=== PATIENT | male | born 1990 | race Caucasian/White ===

== ENCOUNTER 2018-01-04 09:32 | Emergency (ER) | payer BC, SELFPAY ==
--- NOTE | 2018-01-04 11:04 | RAD REPORT ---
EXAM DESCRIPTION: US - Scrotum Testicles - 01/04/2018 10:43 am CLINICAL HISTORY: Left-sided groin pain. COMPARISON: None. FINDINGS: The right testicle 5.2 x 3.6 x 2.5 cm. No intratesticular masses or evidence of testicular torsion. The left testicle 4.7 x 3.4 x 2.1 cm. No intratesticular masses or evidence of testicular torsion. Both epididymides are normal in size and appearance. Moderate fat containing left inguinal hernia suspected. IMPRESSION: Suspected left inguinal hernia. Correlation with physical exam findings is suggested.
[2018-01-04 11:15] LABS: Absolute Lymphocytes (CBC) 2.5 K/uL (0.7-4.9); Absolute Monocytes 0.6 K/uL (0.1-1.3); Absolute Neutrophil 3.2 K/uL (1.8-8.0); Basophils % 0.4 % (0-1.3); Eosinophils % 2.1 % (0-4.4); Hematocrit 40.1 % (39.6-49.0); Lymphocytes % 38.4 % (15.3-44.8); MCH 30.7 pg (27.0-35.0); MCV 87.5 fL (80-100); MPV 7.5 fL (7.6-11.3); RBC Red Blood Cell Count 4.59 M/uL (4.33-5.43)
[2018-01-04 11:26] LABS: Bicarbonate 27 mEq/L (21-31); Glucose Level 101 mg/dL (65-120); Potassium 3.8 mEq/L (3.6-5.0); Sodium Level 137 mEq/L (135-145)
[2018-01-04 11:29] LABS: ALT/SGPT 39 IU/L (10-60); AST/SGOT 26 IU/L (10-42); Albumin 4.4 g/dL (3.2-5.5); Alkaline Phosphatase 64 IU/L (42-121); BUN Blood Urea Nitrogen 12 mg/dL (6-20); Bilirubin Total 0.5 mg/dL (0.3-1.2); Protein, Total 7.2 g/dL (6.0-8.3)
[2018-01-04 11:47] LABS: Urine Blood NEGATIVE (NEG); Urine Glucose NEGATIVE (NEG); Urine Protein NEGATIVE (NEG); Urine Specific Gravity 1.025 (1.005-1.030); Urine pH 5.5 (5.0-7.0)
--- NOTE | 2018-01-04 11:53 | EDPHYS ---
Physician Documentation [facility] Name: Jatin Rodríguez Age: 27 yrs Sex: Male : 1990 Arrival Date: 01/04/2018 Time: 09:35 Bed 16 Private MD: ED Physician Bandar Ricks HPI: 01/04 11:40 This 27 yrs old Male presents to ER via Ambulatory with complaints of sandro Testicular Swelling. 11:40 The patient presents with tenderness, that is mild, that is moderate, of the left sandro testicle. Onset: The symptoms/episode began/occurred 3 day(s) ago. Modifying factors: The symptoms are alleviated by remaining still, the symptoms are aggravated by movement, pressure. Associated signs and symptoms: The patient has no apparent associated signs or symptoms. Severity of symptoms: At their worst the symptoms were mild, in the emergency department the symptoms are unchanged. The patient has experienced similar episodes in the past, a few times. Historical: - Allergies: 10:06 No Known Allergies; jl7 - Home Meds: 10:06 None [Active]; jl7 - PMHx: 10:06 None; jl7 - PSHx: 10:06 None; jl7 - Immunization history:: Adult Immunizations unknown. - Social history:: Smoking status: Patient/guardian denies using tobacco. ROS: 11:45 Constitutional: Negative for fever, chills, and weight loss, Eyes: Negative for injury, sandro pain, redness, and discharge, ENT: Negative for injury, pain, and discharge, Neck: Negative for injury, pain, and swelling, Cardiovascular: Negative for chest pain, palpitations, and edema, Respiratory: Negative for shortness of breath, cough, wheezing, and pleuritic chest pain, Abdomen/GI: Negative for abdominal pain, nausea, vomiting, diarrhea, and constipation, Back: Negative for injury and pain, MS/Extremity: Negative for injury and deformity, Skin: Negative for injury, rash, and discoloration, Neuro: Negative for headache, weakness, numbness, tingling, and seizure, Psych: Negative for depression, anxiety, suicide ideation, homicidal ideation, and hallucinations, Allergy/Immunology: Negative for hives, rash, and allergies, Endocrine: Negative for neck swelling, polydipsia, polyuria, polyphagia, and marked weight changes, Hematologic/Lymphatic: Negative for swollen nodes, abnormal bleeding, and unusual bruising. 11:45 : Positive for of the left testicle. Exam: 11:45 Constitutional: This is a well developed, well nourished patient who is awake, alert, sandro and in no acute distress. Head/Face: Normocephalic, atraumatic. Eyes: Pupils equal round and reactive to light, extra-ocular motions intact. Lids and lashes normal. Conjunctiva and sclera are non-icteric and not injected. Cornea within normal limits. Periorbital areas with no swelling, redness, or edema. ENT: Nares patent. No nasal discharge, no septal abnormalities noted. Tympanic membranes are normal and external auditory canals are clear. Oropharynx with no redness, swelling, or masses, exudates, or evidence of obstruction, uvula midline. Mucous membranes moist. Neck: Trachea midline, no thyromegaly or masses palpated, and no cervical lymphadenopathy. Supple, full range of motion without nuchal rigidity, or vertebral point tenderness. No Meningismus. Chest/axilla: Normal chest wall appearance and motion. Nontender with no deformity. No lesions are appreciated. Cardiovascular: Regular rate and rhythm with a normal S1 and S2. No gallops, murmurs, or rubs. Normal PMI, no JVD. No pulse deficits. Respiratory: Lungs have equal breath sounds bilaterally, clear to auscultation and percussion. No rales, rhonchi or wheezes noted. No increased work of breathing, no retractions or nasal flaring. Abdomen/GI: Soft, non-tender, with normal bowel sounds. No distension or tympany. No guarding or rebound. No evidence of tenderness throughout. Back: No spinal tenderness. No costovertebral tenderness. Full range of motion. Skin: Warm, dry with normal turgor. Normal color with no rashes, no lesions, and no evidence of cellulitis. MS/ Extremity: Pulses equal, no cyanosis. Neurovascular intact. Full, normal range of motion. Neuro: Awake and alert, GCS 15, oriented to person, place, time, and situation. Cranial nerves II-XII grossly intact. Motor strength 5/5 in all extremities. Sensory grossly intact. Cerebellar exam normal. Normal gait. Psych: Awake, alert, with orientation to person, place and time. Behavior, mood, and affect are within normal limits. 11:45 : CVA tenderness, is absent, Male external genitalia: Circumcision noted. tenderness, of the left testicle is noted. 11:45 Musculoskeletal/extremity: Extremities: all appear grossly normal, with no appreciated pain with palpation. Vital Signs: 10:06 BP 114 / 68; Pulse 80; Resp 16 S; Temp 98.3(O); Pulse Ox 98% on R/A; Weight 102.06 kg 7 (R); Height 5 ft. 10 in. (177.80 cm) (R); Pain 6/10; 11:00 BP 114 / 75; Pulse 91; Resp 16 S; Pulse Ox 98% on R/A; jl7 12:00 BP 113 / 74; Pulse 90; Resp 16 S; Pulse Ox 100% on R/A; 7 10:06 Body Mass Index 32.28 (102.06 kg, 177.80 cm) [facility] MDM: 09:58 Patient medically screened. [facility] 01/04 10:02 Order name: CBC with Diff; Complete Time: 11:40 [facility] 01/04 10:02 Order name: Comprehensive Metabolic Panel; Complete Time: 11:40 [facility] 01/04 10:02 Order name: US Scrotum Testicles; Complete Time: 11:40 [facility] 01/04 10:02 Order name: Urine Culture [facility] 01/04 10:44 Order name: Urine Dipstick--Ancillary (enter results) [facility] 01/04 10:02 Order name: Urine Dipstick-Ancillary (obtain specimen); Complete Time: 11:18 [facility] 01/04 10:02 Order name: IV Saline Lock; Complete Time: 11:17 [facility] Administered Medications: 12:00 Drug: Zithromax 1 grams Route: PO; [facility] 12:05 Follow up: Response: No adverse reaction [facility] 12:01 Drug: Rocephin - (cefTRIAXone) 1 grams Route: IVPB; Infused Over: 30 mins; Site: right jl7 antecubital; 12:03 Follow up: Response: No adverse reaction; IV Status: Completed infusion [facility] 12:03 Drug: TORadol 30 mg Route: IVP; Site: right antecubital; [facility] 12:05 Follow up: Response: No adverse reaction; Pain is decreased [facility] Disposition: 01/04/18 11:53 Discharged to Home. Impression: Epididymitis. - Condition is Stable. - Discharge Instructions: Epididymitis. - Prescriptions for Ibuprofen 600 mg Oral Tablet - take 1 tablet by ORAL route every 8 hours As needed take with food; 21 tablet. Tylenol- Codeine #3 300-30 mg Oral Tablet - take 2 tablets by ORAL route every 6 hours As needed; 24 tablet. Doxycycline Hyclate 100 mg Oral Tablet - take 1 tablet by ORAL route every 12 hours; 14 tablet. - Medication Reconciliation Form, Thank You Letter, Antibiotic Education, Prescription Opioid Use form. - Follow up: Private Physician; When: 2 - 3 days; Reason: Recheck today's complaints, Continuance of care, Re-evaluation by your physician. Follow up: Coreen Dodge MD; When: 2 - 3 days; Reason: Recheck today's complaints, Re-evaluation by your physician. Follow up: Flynn Webb MD; When: 2 - 3 days; Reason: Recheck today's complaints, Re-evaluation by your physician. - Problem is new. - Symptoms have improved. Signatures: Dispatcher [employer] EDBandar Valencia MD MD cha Leal, Jahala, RN RN jl7
--- NOTE | 2018-01-04 11:53 | ER ---
Nurse's Notes [facility] Name: Jatin Rodríguez Age: 27 yrs Sex: Male : 1990 Arrival Date: 01/04/2018 Time: 09:35 Bed 16 Private MD: Diagnosis: Epididymitis Presentation: 01/04 10:04 Presenting complaint: Patient states: "The veins in my testicles are swollen." Denies jl7 trauma. Transition of care: patient was not received from another setting of care. Onset of symptoms was January 01, 2018. Initial Sepsis Screen: Does the patient meet any 2 criteria? No. Patient's initial sepsis screen is negative. Does the patient have a suspected source of infection? No. Patient's initial sepsis screen is negative. Care prior to arrival: None. 10:04 Method Of Arrival: Ambulatory [facility] 10:04 Acuity: BARBARA 3 jl7 Historical: - Allergies: 10:06 No Known Allergies; jl7 - Home Meds: 10:06 None [Active]; jl7 - PMHx: 10:06 None; jl7 - PSHx: 10:06 None; jl7 - Immunization history:: Adult Immunizations unknown. - Social history:: Smoking status: Patient/guardian denies using tobacco. Screenin:10 Abuse screen: Denies threats or abuse. Denies injuries from another. Nutritional jl7 screening: No deficits noted. Tuberculosis screening: No symptoms or risk factors identified. Fall Risk IV access (20 points). Total Abarca Fall Scale indicates No Risk (0-24 pts). Assessment: 10:10 General: Appears in no apparent distress. uncomfortable. Pain: Complains of pain in jl7 left testicle Pain does not radiate. Pain currently is 7 out of 10 on a pain scale. Pain began 2-3 days ago. Neuro: Level of Consciousness is awake, alert, obeys commands. Cardiovascular: Patient's skin is warm and dry. Respiratory: Airway is patent Respiratory effort is even, unlabored, Respiratory pattern is regular, symmetrical. GI: No signs and/or symptoms were reported involving the gastrointestinal system. : Genitalia appear normal Reports "Testicle vein swelling.". EENT: No signs and/or symptoms were reported regarding the EENT system. Derm: Skin is pink, warm \\T\\ dry. Musculoskeletal: No signs and/or symptoms reported regarding the musculoskeletal system. 11:00 Reassessment: Patient and/or family updated on plan of care and expected duration. Pain jl7 level reassessed. Patient is alert, oriented x 3, equal unlabored respirations, skin warm/dry/pink. 12:00 Reassessment: Dr. Ricks at bedside discussing POC. jl7 Vital Signs: 10:06 BP 114 / 68; Pulse 80; Resp 16 S; Temp 98.3(O); Pulse Ox 98% on R/A; Weight 102.06 kg jl7 (R); Height 5 ft. 10 in. (177.80 cm) (R); Pain 6/10; 11:00 BP 114 / 75; Pulse 91; Resp 16 S; Pulse Ox 98% on R/A; jl7 12:00 BP 113 / 74; Pulse 90; Resp 16 S; Pulse Ox 100% on R/A; jl7 10:06 Body Mass Index 32.28 (102.06 kg, 177.80 cm) jl7 ED Course: 09:35 Patient arrived in ED. rg4 09:57 Katarzyna Felix, KASANDRA is Primary Nurse. jl7 09:58 Bandar Ricks MD is Attending Physician. sandro 10:05 Triage completed. jl7 10:06 Arm band placed on right wrist. jl7 10:43 US Scrotum Testicles In Process Unspecified. EDMS 11:25 Patient has correct armband on for positive identification. Placed in gown. Bed in low mh5 position. Side rails up X 1. 11:25 Initial lab(s) drawn, by ia, sent to lab. Urine collected: clean catch specimen, clear. mh5 Inserted saline lock: 20 gauge in left antecubital area, using aseptic technique. Blood collected. 11:26 Pulse ox on. NIBP on. mh5 11:55 Coreen Dodge MD is Referral Physician. sandro 11:55 Flynn Webb MD is Referral Physician. sandro 12:11 No provider procedures requiring assistance completed. IV discontinued, intact, jl7 bleeding controlled, No redness/swelling at site. Pressure dressing applied. Administered Medications: 12:00 Drug: Zithromax 1 grams Route: PO; jl7 12:05 Follow up: Response: No adverse reaction jl7 12:01 Drug: Rocephin - (cefTRIAXone) 1 grams Route: IVPB; Infused Over: 30 mins; Site: right jl7 antecubital; 12:03 Follow up: Response: No adverse reaction; IV Status: Completed infusion jl7 12:03 Drug: TORadol 30 mg Route: IVP; Site: right antecubital; jl7 12:05 Follow up: Response: No adverse reaction; Pain is decreased jl7 Outcome: 11:53 Discharge ordered by MD. jo 12:11 Discharged to home ambulatory. jl7 12:11 Condition: stable 12:11 Discharge instructions given to patient, Instructed on discharge instructions, follow up and referral plans. medication usage, Demonstrated understanding of instructions, follow-up care, medications, Prescriptions given X 3. 12:13 Patient left the ED. jl7 Signatures: Dispatcher [employer] EDBandar Valencia MD MD cha Garcia, Josefa 4 Tara Puckett [facility] Katarzyna Felix RN RN jl7
[2018-01-04] MEDS ORDERED: AZITHROMYCIN 250 MG TAB ONE (11:55)
[2018-01-04] MEDS ORDERED: KETOROLAC 30 MG/ML INJ ONE (11:55)
[2018-01-04] MEDS ORDERED: CEFTRIAXONE/SWI 1gm 1 GM/10 ML SYR ONE (11:56)
== END 2018-01-04 12:13 | disposition home or self-care (01) ==
LOC: ER 09:32
DX: N45.1 Epididymitis (principal)
CPT/HCPCS: 36415; 76870; 80053; 81003; 85025; 87086; 87088; 96374; 96375; 99284; J0696

== ENCOUNTER 2018-07-20 06:24 | Emergency (ER) | payer SELFPAY ==
[2018-07-20 07:02] LABS: Absolute Lymphocytes (CBC) 1.2 K/uL (0.7-4.9); Absolute Monocytes 0.8 K/uL (0.1-1.3); Absolute Neutrophil 3.2 K/uL (1.8-8.0); Basophils % 0.6 % (0-1.3); Hematocrit 43.3 % (39.6-49.0); MCH 30.7 pg (27.0-35.0); MCV 86.8 fL (80-100); MPV 7.7 fL (7.6-11.3); Monocytes % 14.9 % (3.3-12.3); RBC Red Blood Cell Count 4.99 M/uL (4.33-5.43)
[2018-07-20] MEDS ORDERED: ONDANSETRON 4 MG/2 ML VIAL ONE (07:10)
[2018-07-20] MEDS ORDERED: DICYCLOMINE HCL 10 MG CAP ONE (07:10)
[2018-07-20] MEDS ORDERED: FAMOTIDINE 20 MG/2 ML VIAL IV ONE (07:10)
[2018-07-20] MEDS ORDERED: NA CHLORIDE 0.9% 1,000 ML ONE ×2 (07:10→09:06)
[2018-07-20 07:12] LABS: Albumin 4.6 g/dL (3.4-5.0); Bilirubin Direct 0.3 mg/dL (0-0.2); Bilirubin Total 1.1 mg/dL (0.2-1.0); Potassium 3.9 mmol/L (3.5-5.1)
[2018-07-20 08:28] LABS: Urine Blood 1+ (NEG); Urine Glucose NEGATIVE (NEG); Urine Protein NEGATIVE (NEG); Urine Specific Gravity 1.025 (1.005-1.030); Urine pH 6.5 (5.0-7.0)
--- NOTE | 2018-07-20 09:08 | RAD REPORT ---
EXAM DESCRIPTION: CT - Abdomen Pelvis W Contrast - 07/20/2018 8:42 am CLINICAL HISTORY: Abdominal pain predominantly left upper quadrant COMPARISON: None. TECHNIQUE: Biphasic, helical CT imaging of the abdomen and pelvis was performed following 100 ml non -ionic IV contrast. Oral contrast was given. All CT scans are performed using dose optimization technique as appropriate and may include automated exposure control or mA/KV adjustment according to patient size. FINDINGS: No suspicious findings in the lung bases. The liver, spleen, and pancreas show no suspicious findings. Gallbladder and biliary tree are also wi thout suspicious finding. Symmetric renal function is seen with no hydronephrosis or suspicious renal mass. No pyelonephritis o r acute renal parenchymal process. Partially filled urinary bladder shows no suspicious findings. Pro state gland and seminal vesicles are normal. No adrenal abnormality. No dilated bowel loops or bowel wall thickening. Appendix is normal. No free air, free fluid or infla mmatory stranding. No hernia, mass or bulky lymphadenopathy. Patient does have numerous small 1 cent imeter or less mesenteric lymph nodes. No suspicious bony findings. IMPRESSION: Mesenteric adenitis or nonspecific enteritis findings. No appendicitis or other emergent finding.
--- NOTE | 2018-07-20 12:21 | ER ---
Nurse's Notes [facility] Name: Jatin Rodríguez Age: 27 yrs Sex: Male : 1990 Arrival Date: 07/20/2018 Time: 06:27 Bed 13 Private MD: Diagnosis: Diarrhea, unspecified;Unspecified abdominal pain Presentation: 07/20 06:34 Presenting complaint: Patient states: he is having abdominal pain in the upper left bb quad since Monday with diarrhea which is getting worse. Transition of care: patient was not received from another setting of care. Onset of symptoms was July 15, 2018. Risk Assessment: Do you want to hurt yourself or someone else? Patient reports no desire to harm self or others. Initial Sepsis Screen: Does the patient meet any 2 criteria? No. Patient's initial sepsis screen is negative. Does the patient have a suspected source of infection? No. Patient's initial sepsis screen is negative. Care prior to arrival: None. 06:34 Method Of Arrival: Ambulatory bb 06:34 Acuity: BARBARA 3 bb Triage Assessment: 06:55 General: Appears in no apparent distress. uncomfortable, Behavior is calm, cooperative, cc3 appropriate for age. Pain: Complains of pain in abdomen Quality of pain is described as aching, crampy, Pain began 5 days ago. EENT: No signs and/or symptoms were reported regarding the EENT system. Neuro: Level of Consciousness is awake, alert, obeys commands, Oriented to person, place, time, situation, Appropriate for age. Cardiovascular: Denies chest pain. Respiratory: Airway is patent Respiratory effort is even, unlabored, Respiratory pattern is regular, symmetrical. GI: Reports upper abdominal pain, diarrhea, since monday. GI:. : No signs and/or symptoms were reported regarding the genitourinary system. Derm: No signs and/or symptoms reported regarding the dermatologic system. Musculoskeletal: Circulation, motion, and sensation intact. Range of motion: intact in all extremities. Historical: - Allergies: 06:39 No Known Allergies; bb - Home Meds: 08:09 None [Active]; ch - PMHx: 08:09 None; ch - PSHx: 08:09 hydrocele; back; ch - Immunization history:: Adult Immunizations not up to date. - Social history:: Smoking status: unknown. - Ebola Screening: : No symptoms or risks identified at this time. Screenin:59 Abuse screen: Denies threats or abuse. Denies injuries from another. Nutritional cc3 screening: No deficits noted. Tuberculosis screening: No symptoms or risk factors identified. Fall Risk Ambulatory Aid- None/Bed Rest/Nurse Assist (0 pts). Gait- Normal/Bed Rest/Wheelchair (0 pts) Mental Status- Oriented to own ability (0 pts). Assessment: 07:05 Reassessment: finished drinking PO contrast, tolerated well, CT notified. em 07:36 Reassessment: Patient appears in no apparent distress at this time. Patient and/or ch family updated on plan of care and expected duration. Pain level reassessed. Patient is alert, oriented x 3, equal unlabored respirations, skin warm/dry/pink. 08:06 Reassessment: Patient appears in no apparent distress at this time. Patient and/or ch family updated on plan of care and expected duration. Pain level reassessed. Patient is alert, oriented x 3, equal unlabored respirations, skin warm/dry/pink. Patient states feeling better. Patient states symptoms have improved. 08:36 Reassessment: Patient appears in no apparent distress at this time. pt transported to ct now. 09:14 Reassessment: Patient appears in no apparent distress at this time. Patient and/or ch family updated on plan of care and expected duration. Pain level reassessed. Patient is alert, oriented x 3, equal unlabored respirations, skin warm/dry/pink. Patient denies pain at this time. Patient states feeling better. Patient states symptoms have improved. General: Appears in no apparent distress. comfortable, Behavior is calm, cooperative, appropriate for age. Neuro: No deficits noted. Respiratory: Airway is patent Respiratory effort is even, unlabored, Breath sounds are clear bilaterally. GI: Abdomen is round non-distended, Bowel sounds present X 4 quads. Abd is soft X 4 quads Abdomen is tender to palpation X 4 quads. mildly tender. Derm: Skin is pink, warm \T\ dry. 09:23 Reassessment: Patient appears in no apparent distress at this time. Patient and/or ch family updated on plan of care and expected duration. Pain level reassessed. Patient is alert, oriented x 3, equal unlabored respirations, skin warm/dry/pink. pt reports he has had 6 rounds of diarrhea today. pt drinking water, tolerating well. pt states he is still concerned about the diarrhea. Patient states feeling better. Patient states symptoms have improved. 10:04 Reassessment: Patient appears in no apparent distress at this time. Patient and/or ch family updated on plan of care and expected duration. Pain level reassessed. Patient is alert, oriented x 3, equal unlabored respirations, skin warm/dry/pink. awaiting C diff results now. no s/s of distress. Patient states feeling better. Patient states symptoms have improved. 10:28 Reassessment: Patient appears in no apparent distress at this time. No changes from previously documented assessment. 11:31 Reassessment: Patient appears in no apparent distress at this time. No changes from previously documented assessment. awaiting c diff results. 12:14 Reassessment: Patient appears in no apparent distress at this time. No changes from previously documented assessment. I contact lab about pt C diff results. 12:22 Reassessment: Patient appears in no apparent distress at this time. Lab states they are just now starting pt C diff sample. I tell Page and the patient. Contact information obtained for the patient, phone number is [phone]. I tell the pt I will notify him when the results are back. Vital Signs: 06:51 BP 116 / 76; Pulse 113; Resp 16 S; Temp 98.9(O); Pulse Ox 97% on R/A; Weight 99.79 kg; cc3 Height 5 ft. 11 in. (180.34 cm); Pain 7/10; 08:09 BP 99 / 63; Pulse 84; Resp 16; Temp 97.9; Pulse Ox 99% on R/A; Pain 2/10; ch 09:13 BP 100 / 52; Pulse 64; Resp 14; Temp 97.9; Pulse Ox 99% on R/A; Pain 0/10; ch 10:04 BP 105 / 68; Pulse 62; Resp 14; Pulse Ox 99% on R/A; Pain 0/10; ch 10:28 BP 106 / 68; Pulse 65; Resp 18; Temp 99; Pulse Ox 98% on R/A; Pain 03/10; ch 11:31 BP 98 / 52; Pulse 56; Resp 12; Pulse Ox 100% on R/A; Pain 0/10; ch 12:22 BP 116 / 68; Pulse 61; Resp 15; Temp 97.9; Pulse Ox 99% on R/A; Pain 0/10; ch 06:51 Body Mass Index 30.68 (99.79 kg, 180.34 cm) cc3 ED Course: 06:27 Patient arrived in ED. ds1 06:31 Bandar Rivera PA is PHCP. cp 06:31 Aramis Sharma MD is Attending Physician. cp 06:38 Triage completed. bb 06:55 No provider procedures requiring assistance completed. Inserted saline lock: 20 gauge ch in right antecubital area, using aseptic technique. Blood collected. 06:57 Patient has correct armband on for positive identification. Placed in gown. Bed in low cc3 position. Call light in reach. Side rails up X 1. Report given to KASANDRA Cox. 07:00 Arm band placed on left wrist. Patient placed in an exam room, on a stretcher. ch 07:29 Luciano Spear MD is Attending Physician. cp 07:35 Jacqueline Stevens RN is Primary Nurse. ch 08:09 Pulse ox on. NIBP on. Warm blanket given. ch 08:40 CT completed. Patient tolerated procedure well. Patient moved to CT via wheelchair. sj Patient moved back from CT. 08:41 CT Abd/Pelvis - W/Contrast: give po contrast In Process Unspecified. EDMS 09:14 No apparent distress. Resting quietly. Appears to be sleeping. ch 11:31 No apparent distress. Resting quietly. Appears to be sleeping. ch 12:22 IV discontinued, intact, bleeding controlled, No redness/swelling at site. Pressure ch dressing applied. Administered Medications: 07:10 Drug: NS 0.9% 1000 ml Route: IV; Rate: 1 bolus; Site: right antecubital; em 09:06 Follow up: IV Status: Completed infusion; IV Intake: 1000ml ch 07:11 Drug: Zofran 4 mg Route: IVP; Site: right antecubital; ch 09:06 Follow up: Response: No adverse reaction; Marked relief of symptoms ch 07:11 Drug: Pepcid 20 mg Route: IVP; Site: right antecubital; ch 09:05 Follow up: Response: No adverse reaction; Marked relief of symptoms ch 07:14 Drug: Bentyl 20 mg Route: PO; em 09:05 Follow up: Response: No adverse reaction; Marked relief of symptoms 09:06 Follow up: Response: No adverse reaction; Marked relief of symptoms 09:05 Drug: NS 0.9% 1000 ml Route: IV; Rate: 1 bolus; Site: right antecubital; ch 10:06 Follow up: IV Status: Completed infusion; IV Intake: 1000ml ch Intake: 09:06 IV: 1000ml; Total: 1000ml. 10: IV: 1000ml; Total: 2000ml. ch Outcome: 12:21 Discharge ordered by MD. cp 12:22 Discharged to home ambulatory, with family. 12:22 Condition: stable 12:22 Discharge instructions given to patient, Instructed on discharge instructions, follow up and referral plans. medication usage, Demonstrated understanding of instructions, follow-up care, medications, Prescriptions given X 2. 12:29 Patient left the ED. Signatures: Dispatcher [employer] Jacqueline Padilla RN RN ch Alexia Sol Edgar, HYDRAMATIC SPECIALIST HYDRAMATIC SPECIALIST Rhonda Contreras ds1 Kira Laws RN RN bb Bandar Rivera, HAYLEE PA Evelina Kraus cc3
--- NOTE | 2018-07-20 12:21 | EDPHYS ---
Physician Documentation [facility] Name: Jatin Rodríguez Age: 27 yrs Sex: Male : 1990 Arrival Date: 07/20/2018 Time: 06:27 Bed 13 Private MD: ED Physician Luciano Spear HPI: 07/20 06:40 This 27 yrs old Male presents to ER via Ambulatory with complaints of cp Diarrhea, Abdominal Pain. 06:40 The patient presents to the emergency department with nausea, that is mild, diarrhea, cp abdominal pain, of the left upper quadrant and left lower quadrant. Onset: The symptoms/episode began/occurred 5 day(s) ago. Possible causes: unknown. Associated signs and symptoms: Pertinent negatives: anorexia, constipation, dysuria, fever, GI bleeding, vomiting. Severity of symptoms: in the emergency department the symptoms are unchanged despite home interventions. Historical: - Allergies: 06:39 No Known Allergies; bb - Home Meds: 08:09 None [Active]; ch - PMHx: 08:09 None; ch - PSHx: 08:09 hydrocele; back; ch - Immunization history:: Adult Immunizations not up to date. - Social history:: Smoking status: unknown. - Ebola Screening: : No symptoms or risks identified at this time. ROS: 06:45 Constitutional: Negative for body aches, chills, fever, poor PO intake. cp 06:45 Eyes: Negative for injury, pain, redness, and discharge. cp 06:45 ENT: Negative for drainage from ear(s), ear pain, sore throat, difficulty swallowing, difficulty handling secretions. 06:45 Cardiovascular: Negative for chest pain, edema, palpitations. 06:45 Respiratory: Negative for cough, shortness of breath, wheezing. 06:45 Abdomen/GI: Positive for abdominal pain, nausea, diarrhea, Negative for vomiting, constipation, anorexia, black/tarry stool, rectal bleeding. 06:45 Back: Negative for pain at rest, pain with movement, radiated pain. 06:45 : Negative for urinary symptoms, hematuria, testicular pain 06:45 Skin: Negative for cellulitis, rash. 06:45 Neuro: Negative for altered mental status, headache, weakness. 06:45 All other systems are negative. Exam: 06:52 Constitutional: The patient appears in no acute distress, alert, awake, cp non-diaphoretic, non-toxic, well developed, well nourished. 06:52 Head/Face: Normocephalic, atraumatic. Eyes: Pupils equal round and reactive to light, cp extra-ocular motions intact. Lids and lashes normal. Conjunctiva and sclera are non-icteric and not injected. Cornea within normal limits. Periorbital areas with no swelling, redness, or edema. 06:52 ENT: External ear(s): are unremarkable, Ear canal(s): are normal, clear, TM's: dullness, bilaterally, Nose: is normal, Mouth: Lips: dry, Oral mucosa: pink and intact, moist, Posterior pharynx: is normal, airway is patent, no erythema, no exudate, Voice: is normal. 06:52 Neck: ROM/movement: is normal, is supple, without pain, no range of motions limitations, no nuchal rigidity. 06:52 Chest/axilla: Inspection: normal, Palpation: is normal, no crepitus, no tenderness. 06:52 Cardiovascular: Rate: tachycardic, Rhythm: regular, Heart sounds: murmur, not appreciated, JVD: is not appreciated. 06:52 Respiratory: the patient does not display signs of respiratory distress, Respirations: normal, no use of accessory muscles, no retractions, no splinting, no tachypnea, labored breathing, is not present, Breath sounds: are clear throughout, no decreased breath sounds, no stridor, no wheezing. 06:52 Abdomen/GI: Inspection: abdomen appears normal, Bowel sounds: active, all quadrants, Palpation: soft, in all quadrants, mild abdominal tenderness, in the left upper quadrant and left lower quadrant, rebound tenderness, is not appreciated, involuntary guarding, is not appreciated. 06:52 Back: pain, is absent, ROM is normal. 06:52 Skin: cellulitis, is not appreciated, no rash present. 06:52 Neuro: Orientation: to person, place \T\ time. Mentation: is normal, Cerebellar function: is grossly normal, Motor: moves all fours, strength is normal, Sensation: is normal. Vital Signs: 06:51 BP 116 / 76; Pulse 113; Resp 16 S; Temp 98.9(O); Pulse Ox 97% on R/A; Weight 99.79 kg; cc3 Height 5 ft. 11 in. (180.34 cm); Pain 7/10; 08:09 BP 99 / 63; Pulse 84; Resp 16; Temp 97.9; Pulse Ox 99% on R/A; Pain 2/10; ch 09:13 BP 100 / 52; Pulse 64; Resp 14; Temp 97.9; Pulse Ox 99% on R/A; Pain 0/10; ch 10:04 BP 105 / 68; Pulse 62; Resp 14; Pulse Ox 99% on R/A; Pain 0/10; ch 10:28 BP 106 / 68; Pulse 65; Resp 18; Temp 99; Pulse Ox 98% on R/A; Pain 03/10; ch 11:31 BP 98 / 52; Pulse 56; Resp 12; Pulse Ox 100% on R/A; Pain 0/10; ch 12:22 BP 116 / 68; Pulse 61; Resp 15; Temp 97.9; Pulse Ox 99% on R/A; Pain 0/10; ch 06:51 Body Mass Index 30.68 (99.79 kg, 180.34 cm) cc3 MDM: 06:31 Patient medically screened. cp 07:00 Differential diagnosis: gastritis, diverticulitis, viral gastroenteritis, cp gastroenteritis, colitis. 12:20 Data reviewed: vital signs, nurses notes, lab test result(s), radiologic studies, CT cp scan, and as a result, I will discharge patient. 12:20 Counseling: I had a detailed discussion with the patient and/or guardian regarding: the cp historical points, exam findings, and any diagnostic results supporting the discharge/admit diagnosis, lab results, radiology results, to return to the emergency department if symptoms worsen or persist or if there are any questions or concerns that arise at home. 12:20 Response to treatment: the patient's symptoms have markedly improved after treatment. cp ED course: VSS. Pain and nausea improved. CT negative for acute findings. Will discharge to home for continued monitoring. 07/20 06:37 Order name: Basic Metabolic Panel; Complete Time: 07:13 cp 07/20 07:13 Interpretation: Normal except: CL 109. cp 07/20 06:37 Order name: CBC with Diff; Complete Time: 07:13 cp 07/20 07:13 Interpretation: Normal except: MN% 14.9. cp 07/20 06:37 Order name: Creatinine for Radiology; Complete Time: 07:13 cp 07/20 06:37 Order name: Hepatic Function; Complete Time: 07:13 cp 07/20 07:13 Interpretation: Normal except: BILIT 1.1; BILID 0.3. 07/20 06:37 Order name: Lipase; Complete Time: 07:13 cp 07/20 06:37 Order name: Magnesium; Complete Time: 07:13 cp 07/20 07:13 Interpretation: Within normal limits: MG 2.0. 07/20 06:37 Order name: CT Abd/Pelvis - W/Contrast: give po contrast; Complete Time: 09:17 cp 07/20 07:22 Order name: Urine Dipstick--Ancillary (enter results); Complete Time: 08:52 eb 07/20 09:35 Order name: Stool Culture 07/20 09:35 Order name: CDIFF 07/20 10:26 Order name: Occult Blood 07/20 06:37 Order name: IV Saline Lock; Complete Time: 06:50 07/20 06:37 Order name: Labs collected and sent; Complete Time: 06:50 07/20 09:17 Order name: PO challenge; Complete Time: 09:21 cp Administered Medications: 07:10 Drug: NS 0.9% 1000 ml Route: IV; Rate: 1 bolus; Site: right antecubital; em 09:06 Follow up: IV Status: Completed infusion; IV Intake: 1000ml ch 07:11 Drug: Zofran 4 mg Route: IVP; Site: right antecubital; ch 09:06 Follow up: Response: No adverse reaction; Marked relief of symptoms ch 07:11 Drug: Pepcid 20 mg Route: IVP; Site: right antecubital; ch 09:05 Follow up: Response: No adverse reaction; Marked relief of symptoms ch 07:14 Drug: Bentyl 20 mg Route: PO; em 09:05 Follow up: Response: No adverse reaction; Marked relief of symptoms ch 09:06 Follow up: Response: No adverse reaction; Marked relief of symptoms ch 09:05 Drug: NS 0.9% 1000 ml Route: IV; Rate: 1 bolus; Site: right antecubital; ch 10:06 Follow up: IV Status: Completed infusion; IV Intake: 1000ml ch Disposition: 17:45 Co-signature as Attending Physician, Luciano Spear MD. rn Disposition: 07/20/18 12:21 Discharged to Home. Impression: Diarrhea, unspecified, Unspecified abdominal pain. - Condition is Stable. - Discharge Instructions: Abdominal Pain, Adult, Food Choices to Help Relieve Diarrhea, Adult, Diarrhea, Adult. - Prescriptions for Bentyl 20 mg Oral Tablet - take 2 tablet by ORAL route every 6 hours As needed; 40 tablet. Zofran 4 mg Oral Tablet - take 1 tablet by ORAL route every 12 hours As needed; 20 tablet. - Work release form, Medication Reconciliation Form, Thank You Letter, Antibiotic Education, Prescription Opioid Use form. - Follow up: Private Physician; When: 2 - 3 days; Reason: if symptoms continue. - Problem is new. - Symptoms have improved. Signatures: Dispatcher [employer] [facility] Jacqueline Stevens RN RN Mitch Renner, BED MACHINE OPERATOR BED MACHINE OPERATOR Kira Rosales RN RN bb Nieto, Roman, MD MD rn Page, Corey, PA PA cp Cordel, Charlene cc3 Corrections: (The following items were deleted from the chart) 09:37 09:36 Occult Blood+[id number].BRZ ordered. [facility] 12:29 12:21 07/20/2018 12:21 Discharged to Home. Impression: Diarrhea, unspecified; ch Unspecified abdominal pain. Condition is Stable. Forms are Medication Reconciliation Form, Thank You Letter, Antibiotic Education, Prescription Opioid Use. Follow up: Private Physician; When: 2 - 3 days; Reason: if symptoms continue. Problem is new. Symptoms have improved. cp 22:48 07/19 06:52 Constitutional: The patient appears in no acute distress, alert, awake, cp non-toxic, well developed, well nourished, cp 07/20 22:48 07/19 06:52 Head/Face: Normocephalic, atraumatic. Eyes: Pupils equal round and reactive cp to light, extra-ocular motions intact. Lids and lashes normal. Conjunctiva and sclera are non-icteric and not injected. Cornea within normal limits. Periorbital areas with no swelling, redness, or edema. cp 07/20 22:48 07/19 06:52 ENT: External ear(s): are unremarkable, Ear canal(s): are normal, clear, cp TM's: dullness, bilaterally, Nose: is normal, Mouth: Lips: dry, Oral mucosa: moist, Posterior pharynx: is normal, airway is patent, no erythema, no exudate, cp 07/20 06:52 Neck: ROM/movement: is normal, is supple, without pain, no range of motions cp limitations, no nuchal rigidity, cp 07/20 06:52 Chest/axilla: Inspection: normal, Palpation: is normal, no crepitus, no cp tenderness, cp 07/20 06:52 Cardiovascular: Rate: tachycardic, Rhythm: regular, Heart sounds: murmur, cp not appreciated, cp 07/20 06:52 Respiratory: the patient does not display signs of respiratory distress, cp Respirations: normal, no use of accessory muscles, no retractions, no splinting, no tachypnea, labored breathing, is not present, Breath sounds: are clear throughout, no decreased breath sounds, no stridor, no wheezing, cp 07/20 22:07/19 06:52 Abdomen/GI: Inspection: abdomen appears normal, Bowel sounds: active, all cp quadrants, Palpation: soft, in all quadrants, mild abdominal tenderness, in the left upper quadrant and left lower quadrant, rebound tenderness, is not appreciated, involuntary guarding, is not appreciated, cp 07/20 06:52 Back: ROM is normal, CVA tenderness, is absent, cp cp 07/20 06:52 Skin: cellulitis, is not appreciated, no rash present. cp cp 07/20 06:52 Neuro: Orientation: to person, place \T\ time. Mentation: is normal, cp Cerebellar function: is grossly normal, Motor: moves all fours, strength is normal, Sensation: is normal, cp
== END 2018-07-20 12:29 | disposition home or self-care (01) ==
LOC: ER 06:24
DX: R10.9 Unspecified abdominal pain (principal)
CPT/HCPCS: 36415; 74177; 80048; 80076; 81003; 83690; 83735; 85025; 87045; 87046; 87493; 96361; 96374; 96375; 99284; J2405; J7030; Q9967

== ENCOUNTER 2025-06-20 22:46 | Emergency (ER) | payer BC, SELFPAY ==
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
[2025-06-20] MEDS ORDERED: HYDROCODONE/APAP 10/325 TAB ONE (23:02)
[2025-06-20] MEDS ORDERED: IBUPROFEN 400 MG TAB ONE (23:02)
[2025-06-21] MEDS ORDERED: MORPHINE 4 MG/ML SYR ONE (01:39)
--- NOTE | 2025-06-21 01:53 | RAD REPORT ---
EXAM: CT Chest Without Intravenous Contrast CLINICAL HISTORY: The patient is 34 years old and is Male; left shoulder pain TECHNIQUE: Axial computed tomography images of the chest without intravenous contrast. Sagittal and coronal reformatted images were created and reviewed. This CT exam was performed using one or more of the following dose reduction techniques: automated exposure control, adjustment of the mA and/or kV acc ording to patient size, and/or use of iterative reconstruction technique. COMPARISON: Radiographs performed June 20, 2025. FINDINGS: LUNGS AND PLEURAL SPACES: Unremarkable. No mass. No consolidation. No significant effusion. No pneumothorax. HEART: No cardiomegaly. No pericardial effusion. BONES/JOINTS: There is no acute fracture visualized axial and appendicular skeleton. Specifically , no abnormality of the left clavicle and shoulder. The vertebral body heights and alignment are maintained. SOFT TISSUES: The soft tissues are normal. VASCULATURE: Unremarkable. No thoracic aortic aneurysm. LYMPH NODES: Unremarkable. No enlarged lymph nodes. GALLBLADDER AND BILE DUCTS: The gallbladder is contracted. No calcified gallstones are noted. IMPRESSION: No evidence of solid organ injury or traumatic bony findings on this noncontrast CT of the chest. Electronically signed by: Nidia Molina MD 06/21/2025 01:48 AM CDT Due to temporary technical issues with the PACS[employer] reporting system, reports are being alia d by the in-house radiologist without review as a courtesy to ensure prompt reporting the interpreting radiologist is fully responsible for the content of the report. Transcribed Date/Time: 06/21/2025 1:53 AM
--- NOTE | 2025-06-21 02:30 | ER ---
Nurse's Notes [facility] Name: Jatin Rodríguez Age: 34 yrs Sex: Male : 1990 Arrival Date: 06/20/2025 Time: 22:46 Bed 7 Private MD: Diagnosis: Fall on same level from slipping, tripping and stumbling with subsequent striking against object;Contusion of shoulder and upper arm Presentation: 06/20 22:50 Chief complaint: Patient states: LEFT SHOULDER PAIN, WAS PLAYING WITH KIDS AND INJURED ha1 LEFT SHOULDER. 22:50 Coronavirus screen: Client denies travel out of the [place] in the last 14 days. Ebola ha1 Screen: No symptoms or risks identified at this time. Initial Sepsis Screen: Does the patient meet any 2 criteria? No. Patient's initial sepsis screen is negative. Does the patient have a suspected source of infection? No. Patient's initial sepsis screen is negative. Risk Assessment: Do you want to hurt yourself or someone else? Patient reports no desire to harm self or others. Onset of symptoms was June 20, 2025. 22:50 Method Of Arrival: Ambulatory ha1 22:50 Acuity: BARBARA 4 ha1 23:09 Care prior to arrival: None. Mechanism of Injury: Fall from standing position. Trauma al5 event details: Injury occurred in the [facility], Injury occurred: [facility] Injury occurred: June 20, 2025. 23:09 Method Of Arrival: Ambulatory al5 Triage Assessment: 23:12 General: Appears uncomfortable, Behavior is cooperative. Pain: Complains of pain in ha1 LEFT SHOULDER Pain currently is 10 out of 10 on a pain scale. Quality of pain is described as throbbing. Neuro: Level of Consciousness is awake, alert, obeys commands, Oriented to person, place, time, situation. Cardiovascular: Capillary refill < 3 seconds Patient's skin is warm and dry. Respiratory: Airway is patent Respiratory effort is even, unlabored, Respiratory pattern is regular, symmetrical. GI: No signs and/or symptoms were reported involving the gastrointestinal system. : No signs and/or symptoms were reported regarding the genitourinary system. Derm: Skin is pink, warm \T\ dry. Musculoskeletal: Reports pain in left shoulder. Trauma Activation: Physician: ED Physician; Name: ; Notified At: ; Arrived At: Physician: General Surgeon; Name: ; Notified At: ; Arrived At: Physician: Radiology; Name: ; Notified At: ; Arrived At: Physician: Respiratory; Name: ; Notified At: ; Arrived At: Physician: Lab; Name: ; Notified At: ; Arrived At: 23:09 n/a al5 Historical: - Allergies: 23:10 No Known Allergies; ha1 - PSHx: 23:10 back surgery; HERNIA (Unknown); ha1 - Immunization history:: Adult Immunizations up to date, Adult Immunizations up to date. - Immunization history: Last tetanus immunization: n/a. - Infectious Disease History:: Denies. Denies. - Social history:: Smoking status: Patient/guardian denies using tobacco, the patient reports quitting approximately 8 years ago, Smoking status: Patient/guardian denies using tobacco, the patient reports quitting approximately 8 years ago. Screenin:05 [facility] ED Fall Risk Assessment (Adult) History of falling in the last 3 months, al5 including since admission Yes- single mechanical fall (1 pt) Confusion or Disorientation No (0 pts) Intoxicated or Sedated No (0 pts) Impaired Gait No (0 pts) Mobility Assist Device Used Altered Elimination No (0 pt) Score/Fall Risk Level 0 - 2 = Low Risk Oriented to surroundings, Maintained a safe environment, Hourly rounding (assess needs \T\ fall precautionary measures) done. Abuse screen: Denies threats or abuse. Denies injuries from another. Nutritional screening: No deficits noted. Tuberculosis screening: No symptoms or risk factors identified. Primary Survey: 23:07 NO uncontrolled hemorrhage observed. A: The client is alert. Airway: patent, No al5 supplemental oxygen in use on arrival. Breathing/Chest: Respiratory effort: spontaneous, unlabored, Respiratory pattern: regular. Circulation: Skin color: pink, Skin temperature: warm, dry. Disability Pupils are equal, round, reactive to light and accommodation. Client is alert. Exposure/Environment: Obvious injury(ies) are noted at this time: pain to L shoulder. patient was playing kickball at a [email or web address] lock in, fell, and hit L shoulder. Secondary Survey: 23:09 HEENT: No deficits noted. Gastrointestinal: No deficits noted. : No deficits noted. al5 Musculoskeletal: Range of motion: limited in left shoulder Reports pain in posterior aspect of left shoulder. Assessment: 23:05 General: Appears in no apparent distress. uncomfortable, Behavior is calm, cooperative. al5 Pain: Complains of pain in posterior aspect of left shoulder Pain currently is 10 out of 10 on a pain scale. Neuro: Level of Consciousness is awake, alert, obeys commands, Oriented to person, place, time, situation. Cardiovascular: Capillary refill < 3 seconds Patient's skin is warm and dry. Respiratory: Airway is patent Respiratory effort is even, unlabored, Respiratory pattern is regular, symmetrical. GI: No signs and/or symptoms were reported involving the gastrointestinal system. : No signs and/or symptoms were reported regarding the genitourinary system. EENT: No signs and/or symptoms were reported regarding the EENT system. Derm: Skin is intact, is healthy with good turgor, Skin is pink, warm \T\ dry. normal. Musculoskeletal: Circulation, motion, and sensation intact. Range of motion: limited in left shoulder due to pain Reports pain in posterior aspect of left shoulder. 06/21 00:28 Reassessment: Patient appears in no apparent distress at this time. No changes from lg3 previously documented assessment. Patient and/or family updated on plan of care and expected duration. Pain level reassessed. Patient is alert, oriented x 3, equal unlabored respirations, skin warm/dry/pink. 02:02 Reassessment: No changes from previously documented assessment. Patient and/or family kb4 updated on plan of care and expected duration. Pain level reassessed. Patient is alert, oriented x 3, equal unlabored respirations, skin warm/dry/pink. IM morphine given per MD order. 02:37 Reassessment: Patient is alert, oriented x 3, equal unlabored respirations, skin kb4 warm/dry/pink. pain med interventions provided some relief. 02:41 Reassessment: Patient appears in no apparent distress at this time. No changes from lg3 previously documented assessment. Patient and/or family updated on plan of care and expected duration. Pain level reassessed. Patient is alert, oriented x 3, equal unlabored respirations, skin warm/dry/pink. Vital Signs: 06/20 22:50 BP 127 / 98; Pulse 115; Resp 19 S; Temp 98.1(O); Pulse Ox 100% on R/A; Weight 113.4 kg; ha1 Height 5 ft. 11 in. ; Pain 06/27; 23:56 BP 126 / 82; Pulse 101; Resp 18 S; Pulse Ox 100% on R/A; lg3 06/21 00:30 BP 118 / 87; Pulse 90; Resp 18; Pulse Ox 100% on R/A; kb4 01:00 BP 128 / 77; Pulse 97; Resp 18; Pulse Ox 100% ; kb4 01:30 BP 133 / 88; Pulse 99; Resp 18; Pulse Ox 100% on R/A; kb4 02:00 BP 115 / 75; Pulse 93; Resp 18; Pulse Ox 100% ; kb4 02:41 BP 119 / 84; Pulse 94; Resp 17 S; Pulse Ox 100% on R/A; lg3 06/20 22:50 Body Mass Index 34.87 (113.40 kg, 180.34 cm) ha1 06/20 22:50 Pain Scale: Adult ha1 Radha Coma Score: 06/20 23:07 Eye Response: spontaneous(4). Motor Response: obeys commands(6). Verbal Response: al5 oriented(5). Total: 15. Trauma Score (Adult): 23:07 Eye Response: spontaneous(1); Verbal Response: oriented(1); Motor Response: obeys al5 commands(2); Systolic BP: > 89 mm Hg(4); Respiratory Rate: 10 to 29 per min(4); Boone Score: 15; Trauma Score: 12 ED Course: 22:50 Patient arrived in ED. gm2 22:52 Bandar Rivera PA-C is [facility]. cp 22:52 Alonzo Galeana DO is Attending Physician. cp 22:53 Patito Pierre, KASANDRA is Primary Nurse. al5 23:04 Patient did not have IV access during this emergency room visit. al5 23:04 Arm band placed on right wrist. al5 23:05 Patient has correct armband on for positive identification. Bed in low position. Call al5 light in reach. Side rails up X 1. Provided Education on: plan of care. 23:10 Triage completed. ha1 23:10 Patient maintains SpO2 saturation greater than 95% on room air. Thermoregulation: warm al5 blanket given to patient. 23:32 XRAY Humerus LEFT In Process Unspecified. EDMS 23:32 XRAY Clavicle LEFT In Process Unspecified. EDMS 06/21 01:10 CT Chest Wo Con In Process Unspecified. EDMS 02:26 Hansle Carias MD is Referral Physician. cp 02:42 No provider procedures requiring assistance completed. lg3 Administered Medications: 06/20 23:05 Drug: Ethan PO 10 mg-325 mg 1 tabs PO once Route: PO; lg3 23:56 Follow up: Response: No adverse reaction lg3 23:05 Drug: Ibuprofen PO 800 mg PO once Route: PO; lg3 23:56 Follow up: Response: No adverse reaction lg3 06/21 01:57 Drug: morphine IM 4 mg IM once Route: IM; Site: right deltoid; kb4 02:41 Follow up: Response: No adverse reaction lg3 Medication: 06/20 23:05 VIS not applicable for this client. al5 Intake: 23:07 n/a al5 Outcome: 06/21 02:30 Discharge ordered by MD. cp 02:42 Discharged to home ambulatory, with significant other, lg3 02:42 Condition: stable 02:42 Discharge instructions given to patient, Instructed on discharge instructions, follow up and referral plans. medication usage, Demonstrated understanding of instructions, follow-up care, medications, Prescriptions given X 3, 02:42 Patient left the ED. lg3 Signatures: Dispatcher [employer] EDNY Bandar Rivera PA-C PA-C cp Able, Lacie, RN RN lg3 Taty Lind RN RN ha1 Ramandeep Simmons gm2 Patito Pierre RN RN al5 Demetria Turner RN RN kb4 Corrections: (The following items were deleted from the chart) 06/20 23:05 23:04 No provider procedures requiring assistance completed. al5 al5
--- NOTE | 2025-06-21 02:30 | EDPHYS ---
Physician Documentation [facility] Name: Jatin Rodríguez Age: 34 yrs Sex: Male : 1990 Arrival Date: 06/20/2025 Time: 22:46 Bed 7 Private MD: ED Physician Alonzo Galeana HPI: 06/20 23:15 This 34 yrs old Male presents to ER via Ambulatory with complaints of Fall Injury, cp Shoulder Pain, Shoulder Injury. 23:15 Details of fall: The patient fell from an upright position, during sports, playing kick cp ball with children, and struck a tile surface. Onset: The symptoms/episode began/occurred just prior to arrival. Associated injuries: The patient sustained left shoulder, decreased range of motion, painful injury. Severity of symptoms: in the emergency department the symptoms are unchanged, despite home interventions. Historical: - Allergies: 23:10 No Known Allergies; ha1 - PSHx: 23:10 back surgery; HERNIA (Unknown); ha1 - Immunization history:: Adult Immunizations up to date, Adult Immunizations up to date. - Immunization history: Last tetanus immunization: n/a. - Infectious Disease History:: Denies. Denies. - Social history:: Smoking status: Patient/guardian denies using tobacco, the patient reports quitting approximately 8 years ago, Smoking status: Patient/guardian denies using tobacco, the patient reports quitting approximately 8 years ago. ROS: 23:20 Constitutional: Negative for body aches, chills, fever, poor PO intake, cp 23:20 Eyes: Negative for injury, pain, redness, and discharge, cp 23:20 Neck: Negative for bony tenderness, 23:20 Cardiovascular: Negative for chest pain, 23:20 Respiratory: Negative for cough, shortness of breath, wheezing, 23:20 MS/extremity: Positive for decreased range of motion, pain, of the left shoulder, Negative for deformity, paresthesias, 23:20 Neuro: Negative for altered mental status, headache, loss of consciousness, 23:20 All other systems are negative, Exam: 23:20 Head/Face: Normocephalic, atraumatic. cp 23:20 Constitutional: The patient appears in no acute distress, alert, awake, non-diaphoretic, non-toxic, well developed, well nourished, uncomfortable, 23:20 Eyes: Periorbital structures: appear normal, Pupils: equal, round, and reactive to light and accomodation, Extraocular movements: intact throughout, Lids and lashes: appear normal, bilaterally, 23:20 ENT: External ear(s): are unremarkable, Nose: is normal, Mouth: is normal, Posterior pharynx: Airway: no evidence of obstruction, patent, 23:20 Neck: C-spine: vertebral tenderness, is not appreciated, crepitus, is not appreciated, ROM/movement: is normal, is supple, 23:20 Chest/axilla: Inspection: normal, Palpation: crepitus, is not appreciated, tenderness, is not appreciated, 23:20 Cardiovascular: Rate: normal, Rhythm: regular, 23:20 Respiratory: the patient does not display signs of respiratory distress, Respirations: normal, no use of accessory muscles, no retractions, labored breathing, is not present, Breath sounds: are clear throughout, no decreased breath sounds, no stridor, no wheezing, 23:20 Abdomen/GI: Inspection: abdomen appears normal, Palpation: abdomen is soft and non-tender, in all quadrants, 23:20 Musculoskeletal/extremity: Extremities: noted in the left shoulder: anterior and superior tenderness to palpation, decreased and pain with passive ROM, Pulses: noted to be 2+ in the left radial artery, the left shoulder Severe pain noted. 23:20 Neuro: Orientation: to person, place \T\ time. Mentation: is normal, Vital Signs: 22:50 BP 127 / 98; Pulse 115; Resp 19 S; Temp 98.1(O); Pulse Ox 100% on R/A; Weight 113.4 kg; ha1 Height 5 ft. 11 in. ; Pain 10/10; 23:56 BP 126 / 82; Pulse 101; Resp 18 S; Pulse Ox 100% on R/A; lg3 04 00:30 BP 118 / 87; Pulse 90; Resp 18; Pulse Ox 100% on R/A; kb4 01:00 BP 128 / 77; Pulse 97; Resp 18; Pulse Ox 100% ; kb4 01:30 BP 133 / 88; Pulse 99; Resp 18; Pulse Ox 100% on R/A; kb4 02:00 BP 115 / 75; Pulse 93; Resp 18; Pulse Ox 100% ; kb4 02:41 BP 119 / 84; Pulse 94; Resp 17 S; Pulse Ox 100% on R/A; lg3 06/20 22:50 Body Mass Index 34.87 (113.40 kg, 180.34 cm) ha1 06/20 22:50 Pain Scale: Adult ha1 Anderson Coma Score: 06/20 23:07 Eye Response: spontaneous(4). Motor Response: obeys commands(6). Verbal Response: al5 oriented(5). Total: 15. Trauma Score (Adult): 23:07 Eye Response: spontaneous(1); Verbal Response: oriented(1); Motor Response: obeys al5 commands(2); Systolic BP: > 89 mm Hg(4); Respiratory Rate: 10 to 29 per min(4); Radha Score: 15; Trauma Score: 12 MDM: 22:52 Medical Screening Exam initiated cp 06/21 00:00 Differential diagnosis: closed head injury, contusion, fracture, sprain, strain, cp shoulder dislocation. 02:30 Data reviewed: vital signs, nurses notes, radiologic studies, CT scan, plain films, and cp as a result, I will discharge patient. 02:30 I considered the following discharge prescriptions or medication management in the emergency department Medications were administered in the Emergency Department. See NOV. 02:30 Independent interpretation of the following test(s) in the Emergency Department X-Ray: cp My interpretation is images of left humerus negative for fracture and images of left clavicle negative for fracture. Counseling: I had a detailed discussion with the patient and/or guardian regarding the historical points, exam findings, and any diagnostic results supporting the discharge/admit diagnosis, radiology results, the need for outpatient follow up, for definitive care, a orthopedic surgeon, to return to the emergency department if symptoms worsen or persist or if there are any questions or concerns that arise at home. Response to treatment: the patient's symptoms have mildly improved after treatment, and as a result, I will discharge patient. 06/20 22:59 Order name: XRAY Humerus LEFT cp 06/20 22:59 Order name: XRAY Clavicle LEFT cp 06/20 23:50 Order name: CT Chest Wo Con cp 06/21 02:23 Order name: Sling; Complete Time: 02:41 cp Administered Medications: 06/20 23:05 Drug: Tyler PO 10 mg-325 mg 1 tabs PO once Route: PO; lg3 23:56 Follow up: Response: No adverse reaction lg3 23:05 Drug: Ibuprofen PO 800 mg PO once Route: PO; lg3 23:56 Follow up: Response: No adverse reaction lg3 06/21 01:57 Drug: morphine IM 4 mg IM once Route: IM; Site: right deltoid; kb4 02:41 Follow up: Response: No adverse reaction lg3 Disposition Summary: 06/21/25 02:30 Discharge Ordered Notes: Location: Home cp Problem: new cp Symptoms: have improved cp Condition: Stable cp Diagnosis - Fall on same level from slipping, tripping and stumbling with subsequent striking cp against object - Contusion of shoulder and upper arm cp Followup: cp - With: Hansel Carias MD - When: 5 - 6 days - Reason: Recheck today's complaints Discharge Instructions: - Discharge Summary Sheet cp - Shoulder Pain cp - Shoulder Range of Motion Exercises cp - Shoulder Sprain cp - Shoulder Exercises-SportsMed cp Forms: - Work release form em1 - Medication Reconciliation Form cp - Antibiotic Education cp - Prescription Opioid Use cp - Patient Portal Instructions cp - Leadership Thank You Letter cp Prescriptions: - Anaprox DS 550 mg Oral Tablet - take 1 tablet ORAL route every 12 hours As needed; 20 tablet; Refills: 0, cp Product Selection Permitted - Tramadol 50 mg Oral Tablet - take 1 tablet ORAL route every 8 hours as needed; 12 tablet; Refills: 0, cp Product Selection Permitted - methocarbamol 500 mg Oral tablet - take 2 tablets ORAL route every 6-8 hours; 30 tablet; Refills: 0, Product cp Selection Permitted Addendum: 06/24/2025 09:06 Co-signature as Attending Physician, Alonzo Galeana DO I reviewed the patient's care t t7 provided by the Advanced Practice Provider and agree with the diagnosis and treatment plan. Signatures: Dispatcher [employer] EDPA Bandar Rivera PA-C PA-C cp Able, Lacie RN RN lg3 Taty Lind RN RN ha1 Patito Pierre RN RN al5 Demetria Turner RN RN kb4 Alonzo Galeana DO DO tt7
[2025-06-21 03:05] VITALS: TEMP 98.1; O2SAT 100
[2025-06-21 03:12] VITALS: BP 119/84
--- NOTE | 2025-06-21 04:27 | RAD REPORT ---
EXAM: XR Left Humerus, 2 or More Views CLINICAL HISTORY: The patient is 34 years old and is Male; fall;Pain TECHNIQUE: Frontal and lateral views of the left humerus. COMPARISON: No relevant prior studies available. FINDINGS: BONES/JOINTS: Unremarkable. No acute fracture. No dislocation. SOFT TISSUES: Unremarkable. IMPRESSION: Normal left humerus radiographs. Electronically signed by: Nidia Molina MD 06/20/2025 11:59 PM CDT RP Due to temporary technical issues with the PACS/[facility] reporting system, reports are being alia d by the in-house radiologist without review as a courtesy to ensure prompt reporting the interpreting radiologist is fully responsible for the content of the report. Transcribed Date/Time: 06/21/2025 4:26 AM
--- NOTE | 2025-06-21 04:28 | RAD REPORT ---
EXAM: XR Left Clavicle Complete, 2 or More Views CLINICAL HISTORY: The patient is 34 years old and is Male; fall;Pain TECHNIQUE: Frontal and lordotic views of the left clavicle. COMPARISON: No relevant prior studies available. FINDINGS: BONES/JOINTS: Unremarkable. No acute fracture. No dislocation. SOFT TISSUES: Unremarkable. IMPRESSION: Normal left clavicle radiographs. Electronically signed by: Nidia Molina MD 06/20/2025 11:59 PM CDT RP Due to temporary technical issues with the PACS/[employer] reporting system, reports are being alia d by the in-house radiologist without review as a courtesy to ensure prompt reporting the interpreting radiologist is fully responsible for the content of the report. Transcribed Date/Time: 06/21/2025 4:27 AM
== END 2025-06-21 02:42 | disposition home or self-care (01) ==
LOC: ER 22:46
DX: S40.012A Contusion of left shoulder, initial encounter (principal); W01.198A Fall on same level from slipping, tripping and stumbling with subsequent striking against other object, initial encounter
CPT/HCPCS: 71250; 96372; 99284